=== PATIENT | male | born 1955 | race Caucasian/White ===

== ENCOUNTER 2020-07-29 19:32 | Inpatient (IN) ==
--- OUTSIDE RECORDS SUMMARY | 2020-07-29 19:35 | External Medical Summary | Continuity of Care Document ---
:1955 Author Name Adan Hall Address Unavailable Unavailable , Care Team Providers Name Role Phone Unavailable Unavailable Unavailable ANTON Hall Unavailable Unavailable Unavailable Unavailable Unavailable Problems Skin symptoms (782.9) (R23.9) Allergies and Adverse Reactions Allergy history not documented Medications Medications not documented Procedures History of Umbilical Hernia Repair Statu s: Completed Immunizations Immunizations not documented Family History Unknown Family Member Family history of Nephrolithiasis Status: Active Commen ts: Family History Social History - Smoking Status Never smoked tobacco Plan of Treatment Planned Observations Planned Goals not documented Results No Known Results Results not documented
[2020-07-29] MEDS ORDERED: ACETAMINOPHEN 500 MG TAB PO STA (20:11)
[2020-07-29] MEDS ORDERED: DEXAMETHASONE SOD INJ 10 MG/ML VIAL IV ONE (20:11)
[2020-07-29] MEDS ORDERED: ONDANSETRON INJ 2 MG/ML 2 ML VIAL IV STA (20:13)
[2020-07-29] MEDS ORDERED: SODIUM CHLORIDE 0.9% 1000ML 1,000 ML IV SCH (20:15)
--- NOTE | 2020-07-29 20:44 | XRay Report ---
XR chest 1V portable CLINICAL HISTORY: weakness COMPARISON STUDY: No previous studies for comparison. FINDINGS: Patient is rotated. No pneumothorax or pleural effusion is noted. Apparent left basilar opa city is likely artifactual. There is no evidence for pulmonary edema. Borderline cardiomegaly is note d. No consolidation is identified. IMPRESSION: Rotated study. No acute cardiopulmonary findings. ACT 112: Negative or not required by law. Electronically signed by: Robert Baldwin M.D. 07/29/2020 8:42 PM
[2020-07-29 21:10] LABS: Basophils # (auto) 0.01 K/uL (0-0.2); Basophils % (auto) 0.2 %; Hematocrit (blood only) 48.7 % (42-52); Immature Granulocytes # (auto) 0.01 K/uL (0.00-0.02); Immature Granulocytes % (auto) 0.2 %; Lymphocytes # (auto) 0.63 K/uL (1.2-3.4); Lymphocytes % (auto) 10.5 %; Mean Corpuscular Hemoglobin 32.3 pg (25-34); Mean Corpuscular Hgb Conc 34.9 g/dL (32-36); Mean Corpuscular Volume 92.6 fL (80-100); Mean Platelet Volume 10.8 fL (7.4-10.4); Monocytes # (auto) 0.36 K/uL (0.11-0.59); Neutrophils # (auto) 5.01 K/uL (1.4-6.5); Neutrophils % (auto) 83.1 %; Platelet Count 167 K/uL (130-400); RDW Coefficient of Variation 13.5 % (11.5-14.5); RDW Standard Deviation 45.9 fL (36.4-46.3); Red Blood Count 5.26 M/uL (4.7-6.1); White Blood Count 6.02 K/uL (4.8-10.8)
--- NOTE | 2020-07-29 21:40 | Emergency Department Note ---
Impression & Plan Weakness, Breathlessness ED Provider Note Provider: Wayne Greene MD DATE OF SERVICE: 07/29/2020 CHIEF COMPLAINT: Shortness of breath weakness HISTORY OF PRESENT ILLNESS: Patient is a 64-year-old gentleman denies significant past medical history presenting here today stating approximately 10 days of weakness symptoms with some slight shortness of breath and myalgias and fatigue with headache. Patient states that he was in [place] for his daughter's wedding when she became ill. Reportedly she tested positive for coronavirus. He reports he become much more weak the last several days and his legs are giving out on him but he denies falling. States he tried several days of hydroxychloroquine but stopped it recently. Patient states that he feels prickly short of breath with any movement. Denies leg swelling but did fly back from [place] recently. Patient reports a significant decreased intake in terms of both food and liquids. REVIEW OF SYSTEMS: A total of 10 review of systems was obtained and negative except as stated above in the HPI. PAST MEDICAL HISTORY: As noted above MEDICATIONS: Reviewed the listed home medications SOCIAL HISTORY: Non-smoker, retired anesthesiologist PHYSICAL EXAM: GENERAL: alert and oriented in no acute distress on stretcher but appears fat igued Head: normocephalic and atraumatic EYES: No injection, discharge or icterus. NECK: Trachea midline. Supple. ENT: Mucous membranes pink and moist. LUNGS: Airway patent. No retractions. HEART: Regular rate and rhythm. No chest wall tenderness ABDOMEN: Soft and non-tender, without guarding or rebound. SKIN: Acyanotic, warm, dry, without rashes EXTREMITIES: Without swelling, tenderness or deformity NEUROLOGICAL: No focal deficits. No aphasia. No facial droop or slurred speech. EKG: Normal sinus rhythm 75 bpm. No PVC. No PAC. No acute ST segment elevation or depression. Normal QTC. CONTINUOUS CARDIAC MONITORING: was ordered and showed a heart rate of 80 bpm in normal sinus rhythm Patient's laboratory studies and imaging reviewed. Differential includes Infection, dehydration, metabolic abnormality, hypo/hyperglycemia, electrolyte disturbance, anemia, hypoxia, cardiac sources, intracerebral event, toxicologic, neurologic, as well as other pathologies. IMPRESSION/MEDICAL DECISION MAKING: Exposure and high risk symptomatologies seem almost pathognomonic at this time for coronavirus 19 infection. Rapid test was sent. Borderline fever here. Given some Tylenol as he has not taken any yet today. On 2 L of oxygen with borderline pulse ox of 90% on room air. Chest x-ray appears clear. Denies leg swelling. Lower suspicion at this time for acute PE given the given history. Became sick the day after his daughter became sick prior to traveling. Laboratory studies without significant leukocytosis or anemia. EKG without significant ischemic changes and I do not believe this represents acute ACS. Troponin is negative. Blood cultures were sent but given the findings do not feel I need to empirically cover with broad-spectrum antibiotics as this is likely more of a viral infection. Given his weakness and symptoms discussed with the hospitalist further care as an inpatient. Did give him a dose of dexamethasone as there is been some recent studies showing improvement in coronavirus patient is moderately ill with this medication. DIAGNOSIS: Shortness of breath, weakness, coronavirus 19 infection DISPOSITION: Hospitalist will evaluate Patient was agreeable with this plan. Past Med/Surg History Social History Smoking Status: Never smoker Feels Safe at Home: Yes Allergies Allergies Allergy/AdvReac Type Severity Reaction Status Date / Time No Known Allergies Allergy Unverified 06/28/12 07:30 Home Meds Home Medications Medication Instructions Recorded Confirmed None (Patient States No Home Meds) #0 01/08/11 Results & Data (ED) Vital Signs Vital Signs - 24 hr 07/29/20 19:45 07/29/20 19:59 Temperature 37.7 C H Temperature Source Oral Pulse Rate 97 H Respiratory Rate 18 Respiratory Effort / Characteristics Non-Labored Spontaneous Respiratory Depth Normal Respiratory Pattern Regular Blood Pressure 114/75 Blood Pressure Mean 88 Blood Pressure Position Lying Pulse Oximetry 90 90 Oxygen Delivery Method Room Air Room Air Nasal Cannula Oxygen Flow Rate 0 Sepsis Recent Fever Within 48 Hours Yes Sepsis New/Unexplained Change in Mental Status No Sepsis Action Taken by Nursing No Action Required Oxygen Flow Rate - Titration 2 Pulse Oximetry Post Tiitration 96 Laboratory Data Result diagrams: 07/29/20 20:58 07/29/20 20:58 Lab Results 07/29/20 07/29/20 07/29/20 Range/Units 20:58 20:58 20:58 WBC 6.02 (4.8-10.8) K/uL RBC 5.26 (4.7-6.1) M/uL Hgb 17.0 (14.0-18.0) g/dL Hct 48.7 (42-52) % MCV 92.6 (80-100) fL MCH 32.3 (25-34) pg MCHC 34.9 (32-36) g/dL RDW Std Deviation 45.9 (36.4-46.3) fL RDW Coeff of Manuel 13.5 (11.5-14.5) % Plt Count 167 (130-400) K/uL MPV 10.8 H (7.4-10.4) fL Immature Gran % (Auto) 0.2 % Neut % (Auto) 83.1 % Lymph % (Auto) 10.5 % Oxford % (Auto) 6.0 % Eos % (Auto) 0.0 % Baso % (Auto) 0.2 % Neut # (Auto) 5.01 (1.4-6.5) K/uL Lymph # (Auto) 0.63 L (1.2-3.4) K/uL Oxford # (Auto) 0.36 (0.11-0.59) K/uL Eos # (Auto) 0.00 (0-0.5) K/uL Baso # (Auto) 0.01 (0-0.2) K/uL Immature Gran # (Auto) 0.01 (0.00-0.02) K/uL PT 11.0 (9.0-12.0) Seconds INR 1.0 (0.9-1.1) Sodium 140 (136-145) mmol/L Potassium 4.2 (3.5-5.1) mmol/L Chloride 108 H (98-107) mmol/L Carbon Dioxide 21 (21-32) mmol/L Anion Gap 11.0 (3-11) BUN 26 H (7-18) mg/dl Creatinine 1.25 (0.6-1.4) mg/dl Est Cr Clr Drug Dosing 63.8 ml/min Est GFR ( Amer) 69.1 Est GFR (Non-Af Amer) 59.6 BUN/Creatinine Ratio 20.9 H (10-20) Glucose 112 H (70-99) mg/dl Lactate (0.4-2.0) mmol/L Calcium 9.1 (8.5-10.1) mg/dl Magnesium 2.3 (1.8-2.4) mg/dl Total Bilirubin 0.6 (0.2-1) mg/dl AST 122 H (15-37) U/L ALT 108 H (12-78) U/L Alkaline Phosphatase 216 H (45-117) U/L Troponin I < 0.015 (0-0.045) ng/ml Total Protein 7.5 (6.4-8.2) gm/dl Albumin 3.0 L (3.4-5.0) gm/dl Globulin 4.5 H (2.5-4.0) gm/dl Albumin/Globulin Ratio 0.7 L (0.9-2) TSH 1.930 (0.300-4.500) uIu/ml COVID-19 Eval Order COVID-19 PCR (Negative) 07/29/20 07/29/20 07/29/20 Range/Units 21:20 21:20 22:05 WBC (4.8-10.8) K/uL RBC (4.7-6.1) M/uL Hgb (14.0-18.0) g/dL Hct (42-52) % MCV (80-100) fL MCH (25-34) pg MCHC (32-36) g/dL RDW Std Deviation (36.4-46.3) fL RDW Coeff of Manuel (11.5-14.5) % Plt Count (130-400) K/uL MPV (7.4-10.4) fL Immature Gran % (Auto) % Neut % (Auto) % Lymph % (Auto) % Oxford % (Auto) % Eos % (Auto) % Baso % (Auto) % Neut # (Auto) (1.4-6.5) K/uL Lymph # (Auto) (1.2-3.4) K/uL Oxford # (Auto) (0.11-0.59) K/uL Eos # (Auto) (0-0.5) K/uL Baso # (Auto) (0-0.2) K/uL Immature Gran # (Auto) (0.00-0.02) K/uL PT (9.0-12.0) Seconds INR (0.9-1.1) Sodium (136-145) mmol/L Potassium (3.5-5.1) mmol/L Chloride (98-107) mmol/L Carbon Dioxide (21-32) mmol/L Anion Gap (3-11) BUN (7-18) mg/dl Creatinine (0.6-1.4) mg/dl Est Cr Clr Drug Dosing ml/min Est GFR ( Amer) Est GFR (Non-Af Amer) BUN/Creatinine Ratio (10-20) Glucose (70-99) mg/dl Lactate 1.2 (0.4-2.0) mmol/L Calcium (8.5-10.1) mg/dl Magnesium (1.8-2.4) mg/dl Total Bilirubin (0.2-1) mg/dl AST (15-37) U/L ALT (12-78) U/L Alkaline Phosphatase (45-117) U/L Troponin I (0-0.045) ng/ml Total Protein (6.4-8.2) gm/dl Albumin (3.4-5.0) gm/dl Globulin (2.5-4.0) gm/dl Albumin/Globulin Ratio (0.9-2) TSH (0.300-4.500) uIu/ml COVID-19 Eval Order Covid19 Done at [facility] COVID-19 PCR POSITIVE A* (Negative) Administered Medications Discontinued Medications Acetaminophen (Acetaminophen 500 Mg Tab) 1,000 mg PO NOW STA Stop: 07/29/20 20:12 Last Admin: 07/29/20 21:10 Dose: 1,000 mg Documented by: [id number] Dexamethasone (Dexamethasone Sod Inj 10 Mg/Ml Vial) 10 mg IV NOW ONE Stop: 07/29/20 20:12 Last Admin: 07/29/20 21:10 Dose: 10 mg Documented by: [id number] Sodium Chloride (Nss 1000ml) 1,000 mls @ 999 mls/hr IV .Q1H1M MOI Stop: 07/29/20 21:15 Last Admin: 07/29/20 21:13 Dose: 999 mls/hr Documented by: [id number] Ondansetron HCl (Ondansetron Inj 2 Mg/Ml 2 Ml Vial) 4 mg IV NOW STA Stop: 07/29/20 20:14 Last Admin: 07/29/20 21:10 Dose: 4 mg Documented by: [id number] Discharge Plan Visit Data Chief Complaint: Illness Stated Complaint: positive covid test ED Provider: Wayne Greene Discharge Problem: Weakness, Breathlessness Patient Disposition: Being Evaluated by Hospitalist Forms Stand Alone Forms: My [facility] Prescriptions Prescriptions: No Action None (Patient States No Home Meds) . Qty: 0 RF: 0 Referrals Referrals: Robert Saba DO [Primary Care Provider] -
[2020-07-29 22:18] LABS: Albumin Globulin Ratio 0.7 (0.9-2); Alkaline Phosphatase 216 U/L (45-117); BUN Creatinine Ratio 20.9 (10-20); Blood Urea Nitrogen 26 mg/dl (7-18); Calcium 9.1 mg/dl (8.5-10.1); Carbon Dioxide 21 mmol/L (21-32); Chloride 108 mmol/L (98-107); Creatinine Clr Calc Pharmacy 63.8 ml/min; Est GFR (African American) 69.1; Est GFR (Non-African American) 59.6; Globulin 4.5 gm/dl (2.5-4.0); Glucose 112 mg/dl (70-99); Magnesium 2.3 mg/dl (1.8-2.4); Potassium 4.2 mmol/L (3.5-5.1); Sodium 140 mmol/L (136-145); Total Protein 7.5 gm/dl (6.4-8.2)
[2020-07-29 22:29] LABS: Alanine Aminotransferase 108 U/L (12-78); Aspartate Aminotransferase 122 U/L (15-37); Bilirubin,Total 0.6 mg/dl (0.2-1); Troponin I < 0.015 ng/ml (0-0.045)
[2020-07-29] MEDS ORDERED: LACTATED RINGER'S 1,000 ML IV SCH (22:45)
--- NOTE | 2020-07-30 01:20 | History and Physical Report ---
DATE OF ADMISSION: 07/29/2020 CHIEF COMPLAINT: Fever and shortness of breath. HISTORY OF PRESENT ILLNESS: This is a 64-year-old male with past medical history significant for chronic kidney disease stage III, history of hyperlipidemia, takes statin intermittently, presents with ongoing fever and illness since 07/19/2020. The patient went to [place] on 07/14/2020. His daughter got on 07/18/2020 and at that night she became sick and reportedly the next day the patient started becoming sick with fever. Daughter tested positive for coronavirus. The patient progressively started to have headaches, eye pains, body aches. Lately last 3-4 days symptoms have become worse and is getting short of breath with cough with some phlegm and legs were weak. He states in November, at that time he was in [place] and his son used to go to [place], he thought that his son had viral pneumonia and he also became sick and they thought that he already got COVID and he was immune for it. Patient is retired physician. The patient says he believes in hydroxychloroquine and he took hydroxychloroquine b.i.d. every other day for a few days.But as symptoms got worse he came to the ER and he was receiving 2 liters of oxygen initially and at 2 liters was saturating 90%, now he is saturating 95%. He is hemodynamically stable, no leukocytosis. Chest x-ray is okay. Currently resting comfortably and hemodynamically stable. Denies any chest pain. Has nausea, no vomiting. Appetite is down for the last few days. His daughter has lost sense of smell or taste, but for him his sense of smell and taste is okay. No abdominal pain. Not much bowel movements, but it is loose. Thinks he is dehydrated. No rash. ALLERGIES: No known drug allergies. PAST MEDICAL HISTORY: As mentioned above. PAST SURGICAL HISTORY: Colonoscopy, bilateral blepharoplasty, eye surgery as a child, umbilical hernia repair, vasectomy. MEDICATIONS: Currently none. FAMILY HISTORY: Significant for father had colon cancer, sister has hyperlipidemia, mother had thyroid disorder. SOCIAL HISTORY: . No smoking. Alcohol occasional. No drugs. REVIEW OF SYSTEMS: As per HPI. Rest of the review of systems negative. PHYSICAL EXAMINATION: GENERAL: The patient is of moderate built, not in acute distress. VITAL SIGNS: Temperature T-max 37.7, pulse 69, respiratory rate 18, blood pressure 103/65, oxygen 94% on 2 liters. HEENT: No pallor, no icterus. Pupils equal, round, and reactive to light. Oral mucosa moist. NECK: Supple, no neck masses seen. CARDIOVASCULAR: S1, S2 heard, regular rate and rhythm, no murmur, no gallop. RESPIRATORY SYSTEM: Normal AP diameter. No accessory muscle use. Mild bibasilar crackles heard. No wheezing. ABDOMEN: Soft, bowel sounds present, nontender, no distention. CENTRAL NERVOUS SYSTEM: Cranial nerves II-XII grossly intact, nonfocal. EXTREMITIES: No edema, no erythema seen. LABORATORY DATA: WBC 6.02, hemoglobin 17, hematocrit 48.7, platelets 167. PT 11, INR 1. Sodium 140, potassium 4.2, chloride 108, bicarbonate 21, BUN 26, creatinine 1.2, serum glucose 112. Lactate 1.2, calcium 9.1, magnesium 2.3, total bilirubin 0.6, AST 122, ALT 108, alkaline phosphatase 216. Troponin I less than 0.015. TSH 1.9, COVID-19 PCR positive. IMAGING DATA: Chest x-ray, no acute findings seen. EKG: Normal sinus rhythm at rate of 75. T-wave inversions in anterior leads. QTC 419. ASSESSMENT AND PLAN: This is a 64-year-old male who presents with ongoing illness and found to be COVID positive. 1. SOB, Hypoxia, fever requiring 2 liters of oxygen and COVID positive. Chest x-ray unremarkable. Received a dose of IV dexamethasone in the ER. Labs are okay except for somewhat elevated AST, ALT, and alkaline phosphatase. We will repeat the labs in a.m. Will also check for D-dimer and procalcitonin. Consulted pulmonary, to decide for remdesivir and continuation of dexamethasone.Supportive care,med tele, IV fluids. 2. Chronic kidney disease stage III, currently with creatinine of 1.25. Will follow the labs. 3. Mild transaminitis. We will follow the repeat labs. 4. Hyperlipidemia, not on any medications. 5. Deep venous thrombosis prophylaxis, Lovenox. DISPOSITION: Closely monitor in the med tele. Level 1 full code. Expect to discharge home and follow with the family doctor. ARON
[2020-07-30] MEDS ORDERED: NITROGLYCERIN SL 0.4 MG/TAB TAB SL PRN (01:54)
[2020-07-30] MEDS ORDERED: ACETAMINOPHEN 325 MG TAB PO PRN (01:54)
[2020-07-30] MEDS: SODIUM CHLORIDE 0.9% 1000ML 1,000 ML IV SCH ×2 (03:24→12:00)
[2020-07-30 05:45] LABS: Basophils # (auto) 0.01 K/uL (0-0.2); Basophils % (auto) 0.2 %; Hemoglobin 17.5 g/dL (14.0-18.0); Immature Granulocytes # (auto) 0.02 K/uL (0.00-0.02); Immature Granulocytes % (auto) 0.4 %; Lymphocytes # (auto) 0.54 K/uL (1.2-3.4); Lymphocytes % (auto) 11.6 %; Mean Corpuscular Hemoglobin 32.3 pg (25-34); Mean Corpuscular Hgb Conc 33.7 g/dL (32-36); Mean Corpuscular Volume 96.1 fL (80-100); Monocytes # (auto) 0.15 K/uL (0.11-0.59); Monocytes % (auto) 3.2 %; Neutrophils # (auto) 3.94 K/uL (1.4-6.5); Neutrophils % (auto) 84.6 %; Platelet Count 216 K/uL (130-400); RDW Coefficient of Variation 13.6 % (11.5-14.5); RDW Standard Deviation 48.1 fL (36.4-46.3); Red Blood Count 5.41 M/uL (4.7-6.1); White Blood Count 4.66 K/uL (4.8-10.8)
[2020-07-30 06:02] LABS: Albumin Level 2.8 gm/dl (3.4-5.0); BUN Creatinine Ratio 24.8 (10-20); Bilirubin Direct 0.2 mg/dl (0-0.2); Calcium 8.8 mg/dl (8.5-10.1); Creatinine Clr Calc Pharmacy 69.4 ml/min; Est GFR (African American) 76.4; Est GFR (Non-African American) 65.9; Magnesium 2.4 mg/dl (1.8-2.4); Potassium 4.5 mmol/L (3.5-5.1)
[2020-07-30 06:04] LABS: Bilirubin,Total 0.6 mg/dl (0.2-1); Total Protein 7.6 gm/dl (6.4-8.2)
[2020-07-30 06:39] LABS: D Dimer 1390 ug/L FEU (0-500)
[2020-07-30 06:50] LABS: Appearance Urine Clear (Clear); Bacteria Urine Automated Negative (Negative); Blood Urine Negative (Negative); Color Urine Dark Yellow; Glucose Urine UA Negative (Negative); Ketones Urine 1+ (Negative); Leukocyte Esterase Urine Trace (Negative); Nitrite Urine Negative (Negative); Protein Urine 1+ (Negative); RBC Urine Automated 0-4 /hpf (0-4); Urobilinogen Urine Negative (Negative)
[2020-07-30 06:54] LABS: Bilirubin Urine Negative (Negative); Ictotest Urine Negative (Negative)
[2020-07-30] MEDS ORDERED: DEXAMETHASONE SOD PHOSPHATE 6 MG in SYRINGE 0 ML IV SCH (09:00)
[2020-07-30 09:24] LABS: Lyme Ab IgG w/WB Rflx Negative (Negative); Lyme Ab IgM w/WB Rflx Negative (Negative)
[2020-07-30 09:37] LABS: Hepatitis B Surface Antigen Neg (Neg)
[2020-07-30] MEDS: ENOXAPARIN INJ 40 MG/0.4 ML SYR SQ SCH (09:54)
[2020-07-30] MEDS: ZINC SULFATE 220 MG CAPSULE PO SCH (09:55)
[2020-07-30] MEDS: VITAMIN B COMPLEX TAB PO SCH (09:56)
[2020-07-30] MEDS: ASCORBIC ACID 500 MG TAB PO SCH ×2 (09:56→22:06)
[2020-07-30 10:05] LABS: Hepatitis C IgG 13Yrs+Old_Rflx Neg (Neg)
[2020-07-30] MEDS ORDERED: NSS 30mL Flush, Days 1-5 IV SCH (10:45)
[2020-07-30] MEDS ORDERED: PHARMACY GLYCEMIC MGMT CONSULT PRN (10:52)
[2020-07-30] MEDS ORDERED: REMDESIVIR 200 mg: Day 1 IV ONE (11:00)
[2020-07-30] MEDS ORDERED: DOXYCYCLINE HYCLATE 100 MG CAP PO SCH ×2 (11:00)
--- NOTE | 2020-07-30 11:19 | Pharmacy Report ---
Pharmacy Glycemic Short Note 2 - Date of Service July 30, 2020 - Glycemic Short BSG Results (Last 24 hours): 07/29/20 07/30/20 20:58 05:16 Glucose 112 H 186 H OUTPATIENT ANTIDIABETIC REGIMEN: * N/A ASSESSMENT: * Mr. London is a 64 yo male admitted with COVID-19 infection, he does not have a documented PMH of diabetes * BSG elevated at 186 this AM, patient did receive 10 mg of dexamethasone in the ED yesterday and is scheduled to receive dexamethasone 6 mg IV daily * Will obtain A1c and add correctional sliding scale weight based stress of 2 for now until more BSG data available. Anticipate patient may have high prandial BSGs with dexamethasone administration, if persistently hyperglycemic will add additional insulin (meal-time coverage, basal if needed). PLAN FOR INPATIENT GLYCEMIC CONTROL: * Hold outpatient oral diabetes medications * Basal insulin * Hold for now * Bolus insulin * NovoLog per scale ACHS or Q6hrs while NPO * Goal Range: Low 110 mg/dL - High 140 mg/dL * Correction Factor: 30 mg/dL/unit * Nutritional / Prandial insulin per carb ratio of 1 unit per - grams CHO consumed PLAN FOR DISCHARGE: * tbd
--- NOTE | 2020-07-30 13:13 | Communication Note ---
Date of Service: July 30, 2020 pt noted to have Spo2 91% in RA started on supplemental 02 update received from Pulmonology ; pt will be started on IV Remdicivir cont IV dexamethasone Alberto WHITTAKER consult appreciated recommendation as below : COVID19 Telemedicine 07/30/2020 Infectious Disease, [place] Provider: Bernabe Vargas MD (Infectious Diseases) Primary diagnosis: COVID-19 Pt was saturating <90 on admission and was started on remdesivir while he was on O2. Currently saturating 94% on RA, speaks with uninterrupted sentences, did not not seem to have ANY resp distress at rest. Clear lungs. Clear CXR. Ferritin > 3k, No leukocytosis, + lymphopenia. Mild to moderately abnormal LFTs noted. If I was seeing him now for the first time, would have probably held off on remdesivir, but its a judgement call. Started when he met criteria: + covid, sats < 94% on RA, GFR > 30. He is asks several questions and wishes, or inferred, he'd like to be treated with HCQ. I explained to him the current evidence against its use, he seems to have his own opinions Continue dexamethasone Continue remdesivir Isolation precautions: airborne, dedicated covid unit. Strict adherence. Do not favor HCQ use Do not favor CCP use (plasma) DVT ppx Monitor LFTs, from covid? Would hold doxycycline
--- NOTE | 2020-07-30 13:39 | Communication Note ---
Date of Service: July 30, 2020 ATTENDING NOTE : pt is ordered to have IV Remdesivir -as recommended by Pulmonology at [facility] and ID at [facility] Sabiha Utilized Print out from [facility] inpatient guidance for Diagnosis and treatment for COVID 19 Fact sheet for Patient for Emergency Use Authorization ( EUA ) of Remdesivir for COVID 19 discussed with patient over phone Went over indication of Remdesivir and probable side effect and lab work monitoring during treatment patient understood the information and agreed to have IV Remdesivir Pharmacy updated Pt requests to be treated with Hydroxycholoquin aware that current guideline does not support the treatment LFT's been elevated , worsened today possible due to COVID 19 infection and also prior treatment with Hydroxychloroquion can have contributed as well will monitor CMP daily if LFT 's improved /normalized , will be started on Hydroxychlorquin pt is comfortable with the plan Amy Balderas MD
[2020-07-30] MEDS: INSULIN ASPART 100 UNITS/ML 3 ML PEN SC SCH ×3 (13:43→23:41)
--- NOTE | 2020-07-30 14:50 | Pulmonary Consultation ---
Date of Consultation July 30, 2020 Assessment & Plan (1) COVID-19 virus detected: 64-year-old male presenting with severe COVID-19 infection currently saturating 91% on room air. Agree with initiating Remdesivir therapy since oxygen saturation on room air is less than 94%. Continue this for total 5 days and reassess after 5 days. Agree with Decadron at this time. Monitor blood sugars closely as his glucose is creeping upwards. Recommend keeping him on the drier feeder side with regards to his volume status. Recommend awake proning. If his clinical status worsens such as worsening hypoxia, I would recommend transitioning to high flow nasal cannula. Ferritin level and d-dimer can be rechecked in 48 hours if his clinical condition does not improve. If his clinical condition does improve, I do not see the utility in rechecking these values. I suspect that the transaminitis may be related to the COVID-19 infection itself. He was also on hydroxychloroquine which can cause transaminitis. I see no role for hydroxychloroquine at this time. DVT prophylaxis with Lovenox. Pulmonary will follow-up from the periphery. Please call with questions. Thanks for the consult. I discussed the case with the admitting hospitalist last night and the hospitalist today. (2) Hypoxia: (3) Transaminitis: History of Present Illness Reason for Consultation: COVID-19 infection with hypoxia Requesting Physician: Dr. Balderas Attending Physician: Amy Balderas MD History of Present Illness 64-year-old male with a past medical history of CKD stage III, hyperlipidemia who apparently had ongoing fevers since 07/19/2020. Patient went on a trip to [place] and apparently became sick with fever. Last several days he has been having shortness of breath and cough. His oxygen saturation was 90% on arrival to the hospital. He has been on 2 L nasal cannula intermittently. Currently he is saturating 91% on room air. Otherwise vital signs have been stable. IV dexamethasone in the ER yesterday. He had evidence of transaminitis. He was apparently on hydroxychloroquine as an outpatient for prophylaxis purposes. Pulmonary is being consulted for comment regarding Remdesivir and Decadron therapy. Chest x-ray yesterday did not demonstrate any acute findings. COVID-19 PCR positive on 07/29/2020. Hepatitis panel pending. Ferritin level elevated to 3300. AST 264, ALT 209, alkaline phosphatase 236. Procalcitonin 0.22. Blood cultures pending. I did not personally obtain any history from the patient. I reviewed the patient's electronic medical record. Allergies Allergy/AdvReac Type Severity Reaction Status Date / Time No Known Allergies Allergy Unverified 07/29/20 22:51 Home Medications Home Medications Medication Instructions Recorded Confirmed Type acetaminophen [Tylenol Extra 1,000 mg PO Q6H PRN 07/29/20 07/29/20 History Strength] hydroxychloroquine 200 mg PO BID 07/29/20 07/29/20 History naproxen sodium [Aleve] 220 mg PO BID PRN 07/29/20 07/29/20 History Patient History Medical History (Updated 07/30/20 @ 15:00 by Javier Spear MD) COVID-19 virus detected Hypoxia Transaminitis Social History Smoking Status: Never smoker Hx Alcohol Use: Yes Alcohol type: beer Hx Substance Use: No Preferred Language: Kiswahili Communication Ability: Effective Police Surgeon Required: No Beliefs That Will Affect Care: None Current Living Situation: Family Other Information That Helps Us Care for You: No Feels Safe at Home: Yes Safety Concerns: Feels Safe At This Time Review of Systems Review of Systems: Review of systems is deferred as this is chart review and I did not physically meet with the patient. Physical Exam Physical Exam: Deferred as this is a chart review and I did not physically meet with the patient. Results & Data Results & Data ([facility]) Vital Signs (Past 12 Hours) Vital Signs Temp Pulse Resp BP Pulse Ox 07/30/20 08:37 97.9 F 66 18 107/73 91 I reviewed the vital signs, labs and imaging PG Care Time/CCT Total # of Minutes Spent Total Time Spent with Patient: Total time spent is greater than 50% in coordination of care (as documented) at patient's floor/unit and/or counseling patient: Coding Level of Care Code 06765 Inpt Consult Level 3 Diagnoses COVID-19 virus detected U07.1 Hypoxia R09.02 Transaminitis R74.0 Time Spent (min) 64
--- NOTE | 2020-07-30 16:53 | Hospitalist Progress Note ---
Date of Service July 30, 2020 Assessment & Plan (1) COVID-19 virus detected: Patient is COVID-19 positive Recent travel history to [place] for daughters waiting Patient's daughter is COVID-19 positive as well Patient started to feel been symptomatic since July 10, 2020 Had low-grade fever, muscle ache headache, retro-orbital pain, shortness of breath weakness fatigue, very poor appetite On admission, chest x-ray does not show any evidence of infiltrate covid 19 PCR positive Patient is on droplet isolation precaution [facility]ious disease [facility] from [facility], appreciated Patient will be continued with dexamethasone Hypoxia SPO2 dropped to 91% noted on room air Patient denies of any symptoms Patient started with remdesivir Pulmonology input appreciated (2) Transaminitis: Possible secondary to COVID-19 infection Patient was also taking hydroxychloroquine intermittently at home, could be secondary to drug side effect as well Follow liver function tests daily Ordered for hepatitis test Lyme titer negative Anaplasma smear negative Patient denies of any GI symptoms Continue to follow daily LFTs as patient is on patient is started on remdesivir (3) Hypoxia: possibly due to COVID-19 infection Continue supplemental oxygen On dexamethasone Doxycycline discontinued as there is no evidence of any infiltration on chest x- ray Appreciate input from pulmonology CODE STATUS: Full code DVT prophylaxis: Moderate to high risk given COVID-19 infection Subcu Lovenox Disposition: Expected to be discharged home when medically stable Admission and Anticipated Discharge Date Admission Date: July 30, 2020 Subjective Patient seen at bedside, Sitting up in chair, denies of any shortness of breath, at present on 2 L oxygen via nasal cannula Complains of severe acid reflux, Ordered for Maalox, PPI Continue to have hiccups , started since admission Thorazine ordered No fever or chills, Blood pressure remains in low 90s to 100 Patient denies of any chest heaviness, dyspnea on exertion, no dizzy spell or lightheadedness Review of Systems Review of Systems: All systems reviewed & are unremarkable except as noted in HPI & below Physical Exam Constitutional: WD/WN, vitals as above + ill appearing; no acute distress Eyes: PERRL, conjunctivae normal, anicteric sclerae ENMT: external ear and nose normal, oropharynx normal Neck: trachea midline, no thyromegaly Respiratory: normal respiratory effort; no respiratory distress and no cough Cardiovascular: RRR, no murmur, no edema Gastrointestinal (Abdomen): Inspection/Auscultation: normal bowel sounds Percussion/Palpation: abdomen soft; abdomen nontender Musculoskeletal: no cyanosis or clubbing, extremities motor strength 5/5 Skin: no rashes, warm and dry Neurologic: PERRL, EOMI, accommodation nl, no face palsy, no dysarthria Psychiatric: A+Ox3, euthymic affect Results & Data Results & Data ([facility]) Vital Signs (Past 12 Hours) Vital Signs Temp Pulse Resp BP Pulse Ox 07/30/20 08:37 36.6 C 66 18 107/73 91
[2020-07-30] MEDS ORDERED: ALUMINUM/MAGNESIUM/SIMETH (MAALOX MAX) 30 ML UDC PO STA (18:02)
[2020-07-30] MEDS ORDERED: ALUMINUM/MAGNESIUM/SIMETH (MAALOX MAX) 30 ML UDC PO PRN (18:02)
[2020-07-30] MEDS ORDERED: PROMETHAZINE HCL 12.5 MG in SODIUM CHLORIDE 0.9% 50 ML IV PRN (18:42)
[2020-07-30] MEDS ORDERED: CHLORPROMAZINE HCL 10 MG TABLET PO PRN (18:43)
[2020-07-30] MEDS ORDERED: PANTOprazole 40 MG TAB PO ONE (19:00)
[2020-07-30] MEDS ORDERED: CHLORPROMAZINE HCL 10 MG TABLET PO ONE (19:00)
[2020-07-31 03:47] LABS: Hepatitis A Antibody IgM NON-REACTIVE (NON-REACTIVE); Hepatitis B Core Antibody IgM NON-REACTIVE (NON-REACTIVE)
[2020-07-31 05:52] LABS: Basophils # (auto) 0.01 K/uL (0-0.2); Basophils % (auto) 0.1 %; Hematocrit (blood only) 44.2 % (42-52); Hemoglobin 15.2 g/dL (14.0-18.0); Immature Granulocytes # (auto) 0.04 K/uL (0.00-0.02); Immature Granulocytes % (auto) 0.6 %; Mean Corpuscular Hemoglobin 31.9 pg (25-34); Mean Corpuscular Hgb Conc 34.4 g/dL (32-36); Mean Corpuscular Volume 92.7 fL (80-100); Mean Platelet Volume 10.8 fL (7.4-10.4); Monocytes # (auto) 0.44 K/uL (0.11-0.59); Monocytes % (auto) 6.3 %; Neutrophils # (auto) 5.83 K/uL (1.4-6.5); Platelet Count 196 K/uL (130-400); RDW Coefficient of Variation 13.2 % (11.5-14.5); RDW Standard Deviation 45.3 fL (36.4-46.3); Red Blood Count 4.77 M/uL (4.7-6.1); White Blood Count 7.02 K/uL (4.8-10.8)
[2020-07-31 06:07] LABS: D Dimer 1070 ug/L FEU (0-500)
[2020-07-31 06:18] LABS: Albumin Level 2.3 gm/dl (3.4-5.0); BUN Creatinine Ratio 23.2 (10-20); Calcium 8.6 mg/dl (8.5-10.1); Creatinine Clr Calc Pharmacy 79.8 ml/min; Est GFR (African American) 90.5; Est GFR (Non-African American) 78.1; Potassium 4.7 mmol/L (3.5-5.1)
--- NOTE | 2020-07-31 06:28 | Electrocardiogram Report ---
Test Reason : Blood Pressure : / mmHG Vent. Rate : 075 BPM Atrial Rate : 075 BPM P-R Int : 146 ms QRS Dur : 088 ms QT Int : 376 ms P-R-T Axes : 012 -07 -06 degrees QTc Int : 419 ms Normal sinus rhythm Anterior infarct , age undetermined T wave abnormality, consider anterior ischemia Abnormal ECG When compared with ECG of 27-JUN-2012 07:56, Premature ventricular complexes are no longer Present T wave inversion now evident in Anterior leads Confirmed by Denny Turcios ([id number]) on 07/31/2020 6:27:43 AM Referred By: REFERRED SELF Confirmed By:Denny Turcios
[2020-07-31 06:40] LABS: Albumin Globulin Ratio 0.6 (0.9-2); Bilirubin,Total 0.5 mg/dl (0.2-1); Globulin 3.8 gm/dl (2.5-4.0); Total Protein 6.1 gm/dl (6.4-8.2)
[2020-07-31 06:53] LABS: Estimated Average Glucose 123 mg/dl; Hemoglobin A1C 5.9 % (4.5-5.6)
[2020-07-31] MEDS: ASCORBIC ACID 500 MG TAB PO SCH ×2 (07:53→21:46)
[2020-07-31] MEDS: ZINC SULFATE 220 MG CAPSULE PO SCH (07:54)
[2020-07-31] MEDS: PANTOprazole 40 MG TAB PO SCH (07:54)
[2020-07-31] MEDS: ENOXAPARIN INJ 40 MG/0.4 ML SYR SQ SCH (07:55)
[2020-07-31] MEDS: VITAMIN B COMPLEX TAB PO SCH (07:56)
[2020-07-31] MEDS: INSULIN ASPART 100 UNITS/ML 3 ML PEN SC SCH ×4 (08:41→21:10)
[2020-07-31] MEDS ORDERED: REMDESIVIR 100mg: Days 2-5 IV SCH ×2 (10:00→10:45)
--- NOTE | 2020-07-31 10:04 | Communication Note ---
Date of Service: July 31, 2020 Patient's LFTs are rising above 5 times the upper limit of normal. I have stopped the remdesivir. He is currently saturating 90% on room air. Continue Decadron. Awake pronating as tolerated. Coding Level of Care Code None
[2020-07-31] MEDS: DEXAMETHASONE SOD PHOSPHATE 6 MG in SYRINGE 0 ML IV SCH (12:09)
--- NOTE | 2020-07-31 12:45 | Communication Note ---
Date of Service: July 31, 2020 Spoke with patient over phone, Feels very weak and fatigued Denies of any cough or shortness of breath, still having hiccups Acid reflux symptoms has resolved Oxygen saturation noted to be 90% in room air Patient has been refusing to use oxygen via nasal cannula, as he feels fine After talking over the phone, agreeable to utilize supplemental oxygen to keep saturation above 95% LFTs noted to worsen today with AST above 400, ALT 495 No complaint of right upper quadrant pain, no nausea vomiting, Elevated ferritin, d-dimer Remdesivir discontinued secondary to worsening of liver function Patient is updated Over phone, agreeable With the plan Daily liver function test ordered Amy Balderas MD
[2020-07-31] MEDS: CHLORPROMAZINE HCL 25 MG TABLET PO PRN (13:11)
--- NOTE | 2020-07-31 13:12 | Communication Note ---
Date of Service: July 31, 2020 Patient remains hypoxic, with 2 L nasal cannula SPO2 improved to 95% Borderline hypotension SBP between 97/100 No reflex tachycardia noted Given hypoxia, hypotension, elevated d-dimer which could be secondary to COVID- 19 but would be prudent to rule out pulmonary embolism CT chest with contrast will be beneficial Also persistently elevated/worsening of LFTs, CT abdomen pelvis with contrast would allow to evaluate liver or gallbladder disease: Discussed about CT of chest abdomen pelvis with contrast with patient over p kunal: Patient declines to have a CT scan, as he does not feel short of breath, not convinced that he has a pulmonary embolism, also with lack of any GI symptoms, not interested to CT of abdomen pelvis at well Continue to monitor patient closely. .Patient is willing to consider CT scan if hypoxia worsens or develops symptoms Amy Balderas MD
--- NOTE | 2020-07-31 16:49 | Hospitalist Progress Note ---
Date of Service July 31, 2020 Assessment & Plan (1) COVID-19 virus detected: Patient is COVID-19 positive Recent travel history to [place] for daughters wedding . Patient's daughter is COVID-19 positive as well Patient started to feel symptomatic since July 10, 2020 Had low-grade fever, muscle ache headache, retro-orbital pain, shortness of breath weakness fatigue, very poor appetite On admission, chest x-ray does not show any evidence of infiltrate covid 19 PCR positive Patient is on droplet isolation precaution Infectious disease consult from [facility], appreciated Patient will be continued with dexamethasone Patient is asked to keep on supplemental oxygen as desaturation noted in room air Was started on , which kept on hold today as LFTs worsened (2) Transaminitis: Possible secondary to COVID-19 infection Patient was also taking hydroxychloroquine intermittently at home, could be secondary to drug side effect as well LFTs worsened today AST ALT both level 400 Hepatitis panel negative Lyme titer negative Anaplasma smear negative Patient denies of any GI symptoms Remdesivir discontinued, Patient declined to have CT abdomen pelvis with contrast to assess liver and gallbladder disease (3) Hypoxia: possibly due to COVID-19 infection Given borderline hypotension, persistently elevated d-dimer, consideration was made to do CT chest with contrast to rule out PE, patient declined CT scan Continue supplemental oxygen On dexamethasone Doxycycline discontinued as there is no evidence of any infiltration on chest x- ray Appreciate input from pulmonology CODE STATUS: Full code DVT prophylaxis: Moderate to high risk given COVID-19 infection Subcu Lovenox Disposition: Expected to be discharged home when medically stable Admission and Anticipated Discharge Date Admission Date: July 30, 2020 Subjective 2 L oxygen via nasal cannula SPO2 remains 95%, Patient does not have any cough, afebrile Blood pressure remains borderline low in 100s, patient reports of having dizzy spell and lightheadedness transiently for a few seconds with change of position/standing up No complaint of chest pain, chest heaviness, no palpitation Review of Systems Review of Systems: All systems reviewed & are unremarkable except as noted in HPI & below Physical Exam Constitutional: WD/WN, vitals as above + ill appearing; no acute distress Eyes: PERRL, conjunctivae normal, anicteric sclerae ENMT: external ear and nose normal, oropharynx normal Neck: trachea midline, no thyromegaly Respiratory: normal respiratory effort; no respiratory distress and no cough Cardiovascular: RRR, no murmur, no edema Gastrointestinal (Abdomen): Inspection/Auscultation: normal bowel sounds Percussion/Palpation: abdomen soft; abdomen nontender Musculoskeletal: no cyanosis or clubbing, extremities motor strength 5/5 Skin: no rashes, warm and dry Neurologic: PERRL, EOMI, accommodation nl, no face palsy, no dysarthria Psychiatric: A+Ox3, euthymic affect Results & Data Results & Data ([facility]) Vital Signs (Past 12 Hours) Vital Signs Temp Pulse Pulse Resp BP Pulse Ox 07/31/20 12:06 36.4 C L 68 18 111/67 95 07/31/20 09:29 67
[2020-07-31] MEDS: ENOXAPARIN 80 MG/0.8 ML SYR SQ SCH (21:46)
[2020-08-01 07:55] LABS: Albumin Level 2.4 gm/dl (3.4-5.0); BUN Creatinine Ratio 26.7 (10-20); C Reactive Protein 0.57 mg/dl (0-0.29); Calcium 8.6 mg/dl (8.5-10.1); Creatinine Clr Calc Pharmacy 89.6 ml/min; Est GFR (African American) 103.3; Est GFR (Non-African American) 89.1; Potassium 4.7 mmol/L (3.5-5.1)
[2020-08-01 08:12] LABS: Albumin Globulin Ratio 0.6 (0.9-2); Bilirubin,Total 0.4 mg/dl (0.2-1); Ferritin 2966.5 ng/ml (8-388); Total Protein 6.4 gm/dl (6.4-8.2)
[2020-08-01] MEDS: DEXAMETHASONE SOD PHOSPHATE 6 MG in SYRINGE 0 ML IV SCH (08:41)
[2020-08-01] MEDS: ENOXAPARIN 80 MG/0.8 ML SYR SQ SCH ×2 (08:45→20:49)
[2020-08-01] MEDS: PANTOprazole 40 MG TAB PO SCH (08:47)
[2020-08-01] MEDS: ASCORBIC ACID 500 MG TAB PO SCH ×2 (08:47→20:50)
[2020-08-01 08:48] LABS: D Dimer 640 ug/L FEU (0-500)
[2020-08-01] MEDS: VITAMIN B COMPLEX TAB PO SCH (08:48)
[2020-08-01] MEDS: ZINC SULFATE 220 MG CAPSULE PO SCH (08:48)
[2020-08-01] MEDS: CHLORPROMAZINE HCL 25 MG TABLET PO PRN ×2 (08:55→21:51)
[2020-08-01] MEDS: INSULIN ASPART 100 UNITS/ML 3 ML PEN SC SCH ×4 (09:29→20:47)
--- NOTE | 2020-08-01 11:22 | Communication Note ---
Date of Service: August 01, 2020 Attending note A.m. labs reviewed, d-dimer improved 640(improved from [id number]) Ferritin improves: 2966 was 3856 before Improvement of transaminases: AST 128-was 430 yesterday ALT 348-was 497 yesterday Improvement of LDH Inflammatory parameters for CVID 19 , liver function showing improvement, Patient is still borderline hypoxic in room air SPO2 drops to 90-91% With 2 L oxygen supplement oxygen saturation remains 94-95% Discussed with pulmonology, does not believe continuation of Remdesivir will be helpful in this scenario Patient should continue with steroids, supplemental oxygen to prevent hypoxemia, symptomatic management Spoke with patient over phone, he states he feels fine, no shortness of breath, Lab work updated over phone Patient is requesting to have Remdesivir as his liver function has improved Per pulmonology and per current guideline Remdesivir shows maximum benefit within the first 5 days of COVID-19 infection, patient is on 1012 of infection Remdesivir may not provide any effect at all Patient voiced understanding, but wants to try with Remdesivir any way understands if his liver functions are worse tomorrow /Remdesivir will be discontinued pt states : he does not feel any need to stay in the hospital if no IV medication will be given, he would like to be discharged home tomorrow will repeat LFT's in am Patient is still requiring 2 L oxygen by nasal cannula, will need to do a two-step exercise prior to patient's discharge home Aspirin 81 mg daily started per Pt request as pt remains hypoxic , no significant infiltrate noted in Chest xray /pt declined CT chest with contrast for PE study ordered to for Theraputic dose of SC Lovenox as association with COVID 19 and thromboembolic events are high. BP 89/53, pulse 63-pt denies of any dizzy spell or lightheadedness IV fluid bolus NSS 250 was considered , but pt does not want iV fluids-as he d oes not have any symptoms , willing to increase drinking fluid continue to monitor pt in PCU Amy Balderas MD
[2020-08-01 11:25] LABS: INR 1.1 (0.9-1.1); Prothrombin Time 11.3 Seconds (9.0-12.0)
[2020-08-01] MEDS ORDERED: REMDESIVIR 100mg: Days 2-5 IV SCH (11:30)
[2020-08-01] MEDS: ASPIRIN 81 MG ECTAB PO SCH (11:34)
--- NOTE | 2020-08-01 17:23 | Hospitalist Progress Note ---
Date of Service August 01, 2020 Assessment & Plan (1) COVID-19 virus detected: Patient is COVID-19 positive Recent travel history to [place] for daughters wedding . Patient's daughter is COVID-19 positive as well Patient started to feel symptomatic since July 10, 2020 Had low-grade fever, muscle ache headache, retro-orbital pain, shortness of breath weakness fatigue, very poor appetite On admission, chest x-ray does not show any evidence of infiltrate covid 19 PCR positive Patient is on droplet isolation precaution Infectious disease consult from [facility], appreciated Patient will be continued with dexamethasone Patient is asked to keep on supplemental oxygen as desaturation noted in room air pt was ordered IV Remdesivir for 5 days , received one dose on 07/30 was discontinued as LFTs worsened > 5 then upper limit d-dimer improved 640(improved from [id number]) Ferritin improves: 2966 was 3856 before Patient is still borderline hypoxic in room air SPO2 drops to 90-91% With 2 L oxygen supplement oxygen saturation remains 94-95% Patient is still requiring 2 L oxygen by nasal cannula, will need to do a two-step exercise prior to patient's discharge home Aspirin 81 mg daily started per Pt request as pt remains hypoxic , no significant infiltrate noted in Chest xray /pt declined CT chest with contrast for PE study ordered to for Theraputic dose of SC Lovenox as association with COVID 19 and thromboembolic events are high. BP 89/53, pulse 63-pt denies of any dizzy spell or lightheadedness IV fluid bolus NSS 250 was considered , but pt does not want iV fluids-as he does not have any symptoms , willing to increase drinking fluid continue to monitor pt in PCU (2) Transaminitis: Possible secondary to COVID-19 infection Patient was also taking hydroxychloroquine intermittently at home, could be secondary to drug side effect as well Improvement of transaminases: AST 128-was 430 yesterday ALT 348-was 497 yesterday Improvement of LDH Lyme titer negative Anaplasma smear negative Patient denies of any GI symptoms Remdesivir discontinued, Patient declined to have CT abdomen pelvis with contrast to assess liver and gallbladder disease (3) Hypoxia: possibly due to COVID-19 infection Given borderline hypotension, persistently elevated d-dimer, consideration was made to do CT chest with contrast to rule out PE, patient declined CT scan Therapeutic dose of subcu Lovenox Continue supplemental oxygen On dexamethasone Doxycycline discontinued as there is no evidence of any infiltration on chest x- ray Appreciate input from pulmonology CODE STATUS: Full code DVT prophylaxis: Moderate to high risk given COVID-19 infection Subcu Lovenox therapeutic dose Disposition: if he cannot receive any more dose of Remdesivir secondary to liver function abnormality Patient prefers to be discharged to home Patient is still requiring 2 L oxygen by nasal cannula, will need to do a two-step exercise to assess home 02 needs prior to patient's discharge home Admission and Anticipated Discharge Date Admission Date: July 30, 2020 Physical Exam Constitutional: WD/WN, vitals as above + ill appearing; no acute distress Eyes: PERRL, conjunctivae normal, anicteric sclerae ENMT: external ear and nose normal, oropharynx normal Neck: trachea midline, no thyromegaly Respiratory: normal respiratory effort; no respiratory distress and no cough Cardiovascular: RRR, no murmur, no edema Gastrointestinal (Abdomen): Inspection/Auscultation: normal bowel sounds Percussion/Palpation: abdomen soft; abdomen nontender Musculoskeletal: no cyanosis or clubbing, extremities motor strength 5/5 Skin: no rashes, warm and dry Neurologic: PERRL, EOMI, accommodation nl, no face palsy, no dysarthria Psychiatric: A+Ox3, euthymic affect Results & Data Results & Data ([facility]) Vital Signs (Past 12 Hours) Vital Signs Temp Pulse Pulse Resp BP Pulse Ox 08/01/20 16:00 36.5 C 56 L 18 94/58 L 93 08/01/20 11:45 36.3 C L 62 20 110/65 94 08/01/20 08:56 36.6 C 63 20 89/53 L 94
[2020-08-02 06:22] LABS: Creatinine Clr Calc Pharmacy 96.1 ml/min; Est GFR (African American) 106.3; Est GFR (Non-African American) 91.7
[2020-08-02 06:24] LABS: D Dimer 430 ug/L FEU (0-500)
[2020-08-02 06:38] LABS: C Reactive Protein 0.35 mg/dl (0-0.29); Ferritin 3720.1 ng/ml (8-388)
[2020-08-02] MEDS: DEXAMETHASONE SOD PHOSPHATE 6 MG in SYRINGE 0 ML IV SCH (08:35)
[2020-08-02] MEDS: ASPIRIN 81 MG ECTAB PO SCH (08:36)
[2020-08-02] MEDS: ENOXAPARIN 80 MG/0.8 ML SYR SQ SCH (08:36)
[2020-08-02] MEDS: CHLORPROMAZINE HCL 25 MG TABLET PO PRN (08:37)
[2020-08-02] MEDS: VITAMIN B COMPLEX TAB PO SCH (08:37)
[2020-08-02] MEDS: PANTOprazole 40 MG TAB PO SCH (08:37)
[2020-08-02] MEDS: ASCORBIC ACID 500 MG TAB PO SCH (08:38)
[2020-08-02] MEDS: ZINC SULFATE 220 MG CAPSULE PO SCH (08:38)
[2020-08-02] MEDS: INSULIN ASPART 100 UNITS/ML 3 ML PEN SC SCH ×2 (08:57→12:15)
[2020-08-02] MEDS ORDERED: REMDESIVIR 100mg: Days 2-5 IV SCH (09:00)
--- NOTE | 2020-08-02 09:06 | Communication Note ---
Date of Service: August 02, 2020 Spoke with patient over phone, Feels fine, had a good night sleep, no cough no fever chills denies of any body ache Liver function tests mildly elevated AST 175/ALT 395 slightly worse than before Reactive protein improved , d-dimer normalized Remdesivir IV 100 mg dose given per request of the patient, today is dose #3 Patient understands IV remdesivir may not provide any benefit Patient remains completely asymptomatic, resolution of hypoxia, remains in room air , denies of any SOB , no cough patient wishes to be discharged home later today medically stable to be discharged home Self-isolation/quarantine instructions COVID-19 a positive as per CDC and mobility guideline added to his discharge instructions and I went over with the instructions him with him briefly on the phone Patient is aware of his abnormal liver function test, should not take any more hydroxychloroquine avoid Tylenol. Outpatient hospital follow-up with family physician via telemedicine will be scheduled Repeat lab work liver function test in 1 week Discharge patient home later this afternoon Amy Balderas MD
--- NOTE | 2020-08-02 14:52 | Discharge Summary ---
Date of Service August 02, 2020 Principal Diagnosis COVID 19 infection Discharge Exam Constitutional WD/WN, vitals as above + ill appearing; no acute distress Eyes PERRL, conjunctivae normal, anicteric sclerae ENMT external ear and nose normal, oropharynx normal Neck trachea midline, no thyromegaly Respiratory normal respiratory effort; no respiratory distress and no cough Cardiovascular RRR, no murmur, no edema Gastrointestinal (Abdomen) Inspection/Auscultation: normal bowel sounds Percussion/Palpation: abdomen soft; abdomen nontender Musculoskeletal no cyanosis or clubbing, extremities motor strength 5/5 Skin no rashes, warm and dry Neurologic PERRL, EOMI, accommodation nl, no face palsy, no dysarthria Psychiatric A+Ox3, euthymic affect Discharge Data Allergies Allergy/AdvReac Type Severity Reaction Status Date / Time No Known Allergies Allergy Unverified 07/29/20 22:51 Consultations 07/29/20 22:33 ED Decision to Admit Stat 07/30/20 01:54 Consult Case Management - Discharge Planning Routine 07/30/20 07:28 Consult Infectious Diseases Routine 07/30/20 10:31 Consult Pulmonology Routine Hospital Course (1) COVID-19 virus detected: Patient is COVID-19 positive Recent travel history to [place] for daughters wedding . Patient's daughter is COVID-19 positive as well Patient started to feel symptomatic since July 10, 2020 Had low-grade fever, muscle ache headache, retro-orbital pain, shortness of breath weakness fatigue, very poor appetite All of his symptoms completely resolved during this hospital stay On admission, chest x-ray does not show any evidence of infiltrate covid 19 PCR positive Patient is on droplet isolation precaution Infectious disease consult from [facility], [facility] Started on dexamethasone, first day of treatment 07/29/2020 pt received total #5 days of dexamethasone Prescription for 5 more days of p.o. dexamethasone 6 mg daily sent to pharmacy to complete total 10 days of treatment Patient is asked to keep on supplemental oxygen as desaturation noted in room air pt was ordered IV Remdesivir for 5 days , received ist dose on 07/30 Remdesivir was discontinued on 07/31/2020 due to worsening of liver enzyme more than 5 times of normal As LFTs improved on 08/01/2020, patient requested to resume Remdesivir per Pulmonology, patient does not meet the criteria for IV Remdesivir treatment as study showed benefit if only treated within ist 5 days of symptoms with CoVID 19 pt admitted after 1 week of more days of symptoms Spoke with patient over phone this morning Feels fine, had a good night sleep, no cough no fever chills denies of any body ache Liver function tests mildly elevated AST 175/ALT 395 slightly worse than before C Reactive protein improved , d-dimer normalized Remdesivir IV 100 mg dose given per request of the patient, today is dose #3 Patient understands IV remdesivir may not provide any benefit Patient remains completely asymptomatic, resolution of hypoxia, remains in room air , denies of any SOB , no cough patient wishes to be discharged home later today medically stable to be discharged home Hypoxia resolved, SPO2 95% in room air Aspirin 81 mg daily started per Pt request Blood pressure remains borderline low 90/65, patient remains completely asymptomatic, patient reports at about baseline his blood pressure usually in low 100s Complain of dizzy spell lightheadedness no shortness of breath or dyspnea on exertion No further intervention needed, stable to be discharged home, patient is encouraged to be increased intake of fluids (2) Transaminitis: Possible secondary to COVID-19 infection Patient was also taking hydroxychloroquine intermittently at home, could be secondary to drug side effect as well Transaminitis improved as discussed above Patient is advised to avoid hydroxychloroquine and Tylenol Lyme titer negative Anaplasma smear negative Patient denies of any GI symptoms Outpatient LFT check in a week (3) Hypoxia: possibly due to COVID-19 infection Resolved, in room air, no shortness of breath cough or dyspnea on exertion Stable to be discharged home today Was on iv dexamethasone while in hospital Will send prescription for p.o. dexamethasone to complete total 10 days of course Appreciate input from pulmonology Self-isolation/quarantine instructions COVID-19 per CDC guideline added to his discharge instructions I went over with the instructions with him briefly on the phone Patient is aware of his abnormal liver function test, should not take any more hydroxychloroquine avoid Tylenol. Outpatient hospital follow-up with family physician via telemedicine will be scheduled Repeat lab work liver function test in 1 week CODE STATUS: Full code DVT prophylaxis: Moderate to high risk given COVID-19 infection Subcu Lovenox therapeutic dose Patient is discharged home in stable condition Total Time Total Time Spent Total Time Spent (In Minutes): Approximately 35 minutes Total Time Includes: Discharge Planning and Medication Reconciliation Discharge Plan Discharge Items Patient Disposition: Home - Self-Care Reason For Visit: FEVER, SOB Discharge Diagnosis: COVID 19 infection Activity: Resume your previous activity Non-emergency contact: Primary Care Provider Call non-emergency contact if: you have any medication questions Follow-up/Referrals: Robert Saba, [Primary Care Provider] - Diet: Heart Healthy Ambulatory Orders: Hepatic Function (Liver) Panel (Routine) Timeframe: 1 Week Location: Determined by Patient Ordered By: Amy Hebert Attending Provider Instructions: Home Isolation COVID-19 Instructions The following information about Home Isolation is from the CDC Website: https://www.cdc.gov/coronavirus/2019-ncov/hcp/ulsaauxc-kyxsnzh-tjmvrl.html Stay home except to get medical care People who are mildly ill with COVID-19 are able to isolate at home during their illness. You should restrict activities outside your home, except for getting medical care. Do not go to work, school, or public areas. Avoid using public transportation, ride-sharing, or taxis. Separate yourself from other people and animals in your home People: As much as possible, you should stay in a specific room and away from other people in your home. Also, you should use a separate bathroom, if available. Animals: You should restrict contact with pets and other animals while you are sick with COVID-19, just like you would around other people. Although there have not been reports of pets or other animals becoming sick with COVID-19, it is still recommended that people sick with COVID-19 limit contact with animals until more information is known about the virus. When possible, have another member of your household care for your animals while you are sick. If you are sick with COVID-19, avoid contact with your pet, including petting, snuggling, being kissed or licked, and sharing food. If you must care for your pet or be around animals while you are sick, wash your hands before and after you interact with pets and wear a face mask. Call ahead before visiting your doctor If you have a medical appointment, call the healthcare provider and tell them that you have or may have COVID-19. This will help the healthcare providers office take steps to keep other people from getting infected or exposed. Wear a face mask You should wear a face mask when you are around other people (e.g., sharing a room or vehicle) or pets and before you enter a healthcare providers office. If you are not able to wear a face mask (for example, because it causes trouble breathing), then people who live with you should not stay in the same room with you, or they should wear a face mask if they enter your room. Cover your coughs and sneezes Cover your mouth and nose with a tissue when you cough or sneeze. Throw used tissues in a lined trash can. Immediately wash your hands with soap and water for at least 20 seconds or, if soap and water are not available, clean your hands with an alcohol-based hand paper cone maker that contains at least 60% alcohol. Clean your hands often Wash your hands often with soap and water for at least 20 seconds, especially after blowing your nose, coughing, or sneezing; going to the bathroom; and before eating or preparing food. If soap and water are not readily available, use an alcohol-based hand paper cone maker with at least 60% alcohol, covering all surfaces of your hands and rubbing them together until they feel dry. Soap and water are the best option if hands are visibly dirty. Avoid touching your eyes, nose, and mouth with unwashed hands. Avoid sharing personal household items You should not share dishes, drinking glasses, cups, eating utensils, towels, or bedding with other people or pets in your home. After using these items, they should be washed thoroughly with soap and water. Clean all high-touch surfaces everyday High touch surfaces include counters, tabletops, doorknobs, bathroom fixtures, toilets, phones, keyboards, tablets, and bedside tables. Also, clean any surfaces that may have blood, stool, or body fluids on them. Use a household cleaning spray or wipe, according to the label instructions. Labels contain instructions for safe and effective use of the cleaning product including precautions you should take when applying the product, such as wearing gloves and making sure you have good ventilation during use of the product. Monitor your symptoms Seek prompt medical attention if your illness is worsening (e.g., difficulty breathing).Beforeseeking care, call your healthcare provider and tell them that you have, or are being evaluated for, COVID-19. Put on a face mask before you enter the facility. These steps will help the healthcare providers office to keep other people in the office or waiting room from getting infected or exposed. Ask your healthcare provider to call the local or state health department. Persons who are placed under active monitoring or facilitated self- monitoring should follow instructions provided by their local health department or occupational health professionals, as appropriate. When working with your local health department check their available hours. If you have a medical emergency and need to call 911, notify the dispatch personnel that you have, or are being evaluated for COVID-19. If possible, put on a face mask before emergency medical services arrive. Discontinuing home isolation Patients with confirmed COVID-19 should remain under home isolation precautions until the risk of secondary transmission to others is thought to be low. The decision to discontinue home isolation precautions should be made on a [id number] basis, in consultation with healthcare providers and [facility] and [facility] health departments. [employer]tl [employer] Provider Instructions: Do not take hydroxychloroquine or Tylenol your liver function remains elevated, Hydroxychloroquine will further worsen liver function Need to check lab work/liver function test in a week Pending Studies at Discharge: No Studies:: liver function test in a week Stand-Alone Forms: My [facility] [email or web address], Smoking Cessation Medications and DC Order Prescriptions: New aspirin 81 mg Tablet,Delayed Release (Dr/Ec) 81 mg PO QAM 30 Days Qty: 30 RF: 0 ascorbic acid (vitamin C) [Vitamin C] 500 mg Tablet 500 mg PO BID 30 Days Qty: 60 RF: 0 pantoprazole 40 mg Tablet,Delayed Release (Dr/Ec) 40 mg PO QAM 30 Days Qty: 30 RF: 0 chlorpromazine 25 mg Tablet 25 mg PO Q6H PRN (Reason: hiccup) Qty: 90 RF: 0 alum-mag hydroxide-simeth [Mag-Al Plus Extra Strength] 400-400-40 mg/5 mL Suspension 15 ml PO Q6H PRN (Reason: heartburn) 30 Days Qty: 0 RF: 0 vitamin B complex [Vitamins B Complex] Capsule 1 tab PO QAM 30 Days Qty: 30 RF: 0 zinc sulfate [Orazinc] 220 (50) mg Capsule 220 mg PO DAILY 30 Days Qty: 30 RF: 0 dexamethasone 6 mg tablet 6 mg PO DAILY 5 Days Qty: 5 RF: 0 Continued naproxen sodium [Aleve] 220 mg Tablet 220 mg PO BID PRN (Reason: Fever Or Pain) RF: 0 Discontinued hydroxychloroquine 200 mg Tablet 200 mg PO BID RF: 0 acetaminophen [Tylenol Extra Strength] 500 mg Capsule 1,000 mg PO Q6H PRN (Reason: Fever Or Pain) RF: 0 Discharge Orders: Discharge Order (Routine); Ordered 08/02/20 Ordered By: Amy Balderas Admission Data Admit Date/Time: 07/30/20 00:02 Attending Provider: Amy Balderas Admit Provider: Francisco Simon Primary Care Provider: Robert Saba Other Providers: Francisco Simon ; Bernabe Esposito ; Darrell Nguyen ; Blayne Cornelius I. ; Alex Lawson II ; Lilia Chaudhry ; Tim Velazquez ; Javier Spear Other Interventions: Discharge Summary Assessment (RN) Last Done: 08/02/20 11:43
== END 2020-08-02 14:29 | disposition home or self-care (01) | DRG 179 ==
LOC: ED 19:32 → SUATTDRO 07-30 00:02 → 2E 07-30 00:02